=== PATIENT | female | born 1950 | race Caucasian/White ===

== ENCOUNTER 2016-12-30 15:05 | Emergency (ER) | payer OTHER ==
--- NOTE | 2016-12-30 15:19 | ER Document Report ---
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 + diarrhea, n/v. 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[employer]) - Related Data Allergies/Adverse Reactions: No Known Allergies Allergy (Verified 12/30/16 15:15) Course - Laboratory Result Diagrams: 12/30/16 15:25 12/30/16 15:25 - Vital Signs Vital signs: Temp Pulse Resp BP Pulse Ox 97.5 F 54 L 16 147/91 H 99 12/30/16 21:24 12/30/16 21:24 12/30/16 21:24 12/30/16 21:24 12/30/16 21:24 - Laboratory Laboratory results interpreted by me: 12/30/16 15:25 Calcium 10.6 H Doctor's Discharge - Discharge Disposition: HOME, SELF-CARE Additional Instructions: Please take ibuprofen 600 mg every 6 hours and apply local heat to your right lower ribs which appear to be the cause of your pain today. To ensure that sure lap band is not part of the reason for your episodes of pain, return to the emergency department tomorrow to complete a barium swallow study. Return if you develop worsening pain, persistent vomiting, pass out, have any other symptoms that are worrisome to you. Forms: Follow-Up Radiology Testing
[2016-12-30 15:46] LABS: ABSOLUTE BASOPHILS # (AUTO) 0.1 10^3/uL (0.0-0.2); ABSOLUTE EOSINOPHILS # (AUTO) 0.2 10^3/uL (0.0-0.6); ABSOLUTE MONOCYTES (AUTO) 0.6 10^3/uL (0.1-1.4); ABSOLUTE NEUT (AUTO) 4.7 10^3/uL (1.7-8.2); BASOPHILS % (AUTO) 1.2 % (0-2); EOSINOPHILS % (AUTO) 3.1 % (0-6); HEMATOCRIT 40.5 % (36.0-47.0); HEMOGLOBIN 13.5 g/dL (12.0-15.5); LYMPHOCYTES % (AUTO) 26.3 % (13-45); MEAN CORPUSCULAR HEMOGLOBIN 29.1 pg (27.0-33.4); MEAN CORPUSCULAR HGB CONC 33.4 g/dL (32.0-36.0); MEAN CORPUSCULAR VOLUME 87 fl (80-97); RED BLOOD COUNT 4.65 10^6/uL (3.72-5.28); RED CELL DISTRIBUTION WIDTH 13.1 % (11.5-14.0); SEGMENTED NEUTROPHILS % (AUTO) 61.4 % (42-78); WHITE BLOOD COUNT 7.7 10^3/uL (4.0-10.5)
[2016-12-30 15:48] LABS: APPEARANCE,URINE SLIGHTLY-CLOUDY; BILIRUBIN,URINE NEGATIVE (NEGATIVE); GLUCOSE, URINE NEGATIVE (NEGATIVE); KETONES,URINE NEGATIVE (NEGATIVE); LEUKOCYTE ESTERASE,URINE NEGATIVE (NEGATIVE); NITRITE,URINE NEGATIVE (NEGATIVE); PROTEIN,URINE NEGATIVE (NEGATIVE); URINE SPECIFIC GRAVITY 1.011; UROBILINOGEN,URINE NEGATIVE mg/dL (<2.0)
[2016-12-30 16:01] LABS: ALANINE AMINOTRANSFERASE 21 U/L (9-52); ALBUMIN 3.8 g/dL (3.5-5.0); ALKALINE PHOSPHATASE 110 U/L (38-126); ANION GAP 13 (5-19); ASPARTATE AMINO TRANSFERASE 17 U/L (14-36); BILIRUBIN,DIRECT 0.3 mg/dL (0.0-0.4); BILIRUBIN,TOTAL 0.7 mg/dL (0.2-1.3); BLOOD UREA NITROGEN 14 mg/dL (7-20); CALCIUM 10.6 mg/dL (8.4-10.2); CARBON DIOXIDE 25 mmol/L (22-30); CHLORIDE 103 mmol/L (98-107); CREATININE RESULT 0.73 mg/dL (0.52-1.25); GLUCOSE 92 mg/dL (75-110); LIPASE 82.1 U/L (23-300); POTASSIUM 4.4 mmol/L (3.6-5.0); SODIUM 140.9 mmol/L (137-145); TOTAL PROTEIN 7.4 g/dL (6.3-8.2)
[2016-12-30] MEDS ORDERED: OXYCODONE-ACETAMINOPHEN 5-325 MG TABLET PO ONE (17:47)
--- NOTE | 2016-12-30 19:55 | ER Document Report ---
ED General - General Chief Complaint: Abdominal Pain Stated Complaint: CHEST PAIN Notes: Patient is a 66-year-old female with past medical history of morbid obesity and prior lap band surgery 10 years ago who presents with intermittent right lower rib pain for the past several years. States it typically goes away after 5 minutes but today's episode lasted for almost an hour before it spontaneously resolved. She does describe the pain as a severe, sharp, stabbing pain. Nothing improves or worsens the pain. She denies that the pain is present at the time of my assessment. Denies any associated shortness of breath, pleuritic pain, abdominal pain, vomiting or diarrhea. She is visiting from out of town and has not spoken to her primary care doctor regarding today's concerns. TRAVEL OUTSIDE OF THE [place] IN LAST 30 DAYS: No - Related Data Allergies/Adverse Reactions: No Known Allergies Allergy (Verified 12/30/16 15:15) Past Medical History - General Information source: Patient - Social History Smoking Status: Never Smoker Chew tobacco use (# tins/day): No Frequency of alcohol use: Occasional Drug Abuse: None Lives with: Spouse/Significant other Family History: Reviewed & Not Pertinent Patient has suicidal ideation: No Patient has homicidal ideation: No Renal/ Medical History: Denies: Hx Peritoneal Dialysis Past Surgical History: Reports: Hx Abdominal Surgery - lap band, Hx Cholecystectomy - Immunizations Hx Diphtheria, Pertussis, Tetanus Vaccination: Yes Review of Systems - Review of Systems Notes: Constitutional: Negative for fever. HENT: Negative for sore throat. Eyes: Negative for visual changes. Cardiovascular: Negative for chest pain. Respiratory: Negative for shortness of breath. Gastrointestinal: Negative for abdominal pain, vomiting or diarrhea. Genitourinary: Negative for dysuria. Musculoskeletal: Positive for right lower rib pain Skin: Negative for rash. Neurological: Negative for headaches, weakness or numbness. 10 point ROS negative except as marked above and in HPI. Physical Exam - Vital signs Vitals: Temp Pulse Resp BP Pulse Ox 97.5 F 53 L 18 135/64 H 100 12/30/16 15:17 12/30/16 15:17 12/30/16 15:17 12/30/16 15:17 12/30/16 15:17 Interpretation: Bradycardic Notes: PHYSICAL EXAMINATION: GENERAL: Well-appearing, well-nourished and in no acute distress. HEAD: Atraumatic, normocephalic. EYES: Pupils equal round and reactive to light, extraocular movements intact, sclera anicteric, conjunctiva are normal. ENT: nares patent, oropharynx clear without exudates. Moist mucous membranes. NECK: Normal range of motion, supple without lymphadenopathy LUNGS: Breath sounds clear to auscultation bilaterally and equal. No wheezes rales or rhonchi. HEART: Regular rate and rhythm without murmurs ABDOMEN: Soft, nontender, normoactive bowel sounds. No guarding, no rebound. No masses appreciated. EXTREMITIES: Normal range of motion, no pitting or edema. No cyanosis. NEUROLOGICAL: No focal neurological deficits. Moves all extremities spontaneously and on command. PSYCH: Normal mood, normal affect. SKIN: Warm, Dry, normal turgor, no rashes or lesions noted. Course - Re-evaluation Re-evalutation: 12/30/16 19:55 Patient presents with intermittent right lower rib pain that has been ongoing for approximately 1 year. States that the episodes typically last 5-10 minutes but today's episode lasted almost an hour which prompted her to come to the ER. At time of my assessment patient denies any pain or symptoms. Her abdominal exam is benign without any focal tenderness. She does not have a gallbladder. Laboratories are unremarkable. A barium swallow was recommended after initial chest x-ray demonstrated possible movement of her LAP-BAND. The study has been arranged as an outpatient and I do not believe it is likely the cause of her symptoms today given the absence of any vomiting, esophageal pain or difficulty tolerating oral intake. I think most likely patient has local musculoskeletal pain. Her clinical history, vitals and exam are not consistent with ACS, acute pulmonary embolus, or aortic dissection. I do not believe a workup for ACS is indicated based on her clinical history and she does deny any actual chest pain instead pointing to the lower right ribs just above the right upper quadrant as the cause of her pain. No risk factors for PE and her well's score is 0.At this time will discharge with return precautions and follow-up recommendations. Verbal discharge instructions given a the bedside and opportunity for questions given. Medication warnings reviewed. Patient is in agreement with this plan and has verbalized understanding of return precautions and the need for primary care follow-up in the next 24-72 hours. - Vital Signs Vital signs: Temp Pulse Resp BP Pulse Ox 97.5 F 54 L 16 147/91 H 99 12/30/16 21:24 12/30/16 21:24 12/30/16 21:24 12/30/16 21:24 12/30/16 21:24 - Laboratory Result Diagrams: 12/30/16 15:25 12/30/16 15:25 Laboratory results interpreted by me: 12/30/16 15:25 Calcium 10.6 H - Diagnostic Test Radiology reviewed: Image reviewed, Reports reviewed Radiology results interpreted by me: 12/30/16 19:57 Chest x-ray: No acute infiltrate or widened mediastinum Discharge - Discharge Disposition: HOME, SELF-CARE Additional Instructions: Please take ibuprofen 600 mg every 6 hours and apply local heat to your right lower ribs which appear to be the cause of your pain today. To ensure that sure lap band is not part of the reason for your episodes of pain, return to the emergency department tomorrow to complete a barium swallow study. Return if you develop worsening pain, persistent vomiting, pass out, have any other symptoms that are worrisome to you. Forms: Follow-Up Radiology Testing
[2016-12-30 21:26] VITALS: BP 147/91
== END 2016-12-30 20:05 | disposition home or self-care (01) ==
LOC: ER 15:05
DX: R07.81 Pleurodynia (principal); R07.9 Chest pain, unspecified; R10.9 Unspecified abdominal pain
CPT/HCPCS: 36415; 71020; 80053; 81001; 83690; 85025; 99284